=== PATIENT | female | born 1950 | race Hispanic/Latino ===

== ENCOUNTER 2020-07-14 10:32 | Outpatient (CLI) | payer OTHER | END 2020-07-14 19:12 | disposition home or self-care (01) | LOC: MAMMO 10:32 | PROVIDERS: ATTEND Obstetrics & Gynecology | DX: Z12.31 Encounter for screening mammogram for malignant neoplasm of breast (principal) ==

== ENCOUNTER 2020-08-07 10:34 | Outpatient (CLI) | payer OTHER | END 2020-08-07 20:27 | disposition home or self-care (01) | LOC: MAMMO 10:34 | PROVIDERS: ATTEND Obstetrics & Gynecology | DX: R92.2 Inconclusive mammogram (principal) ==

== ENCOUNTER 2021-01-13 14:55 | Outpatient (CLI) | payer OTHER | END 2021-01-13 19:40 | disposition home or self-care (01) | LOC: MAMMO 14:55 | PROVIDERS: ATTEND Obstetrics & Gynecology | DX: R92.8 Other abnormal and inconclusive findings on diagnostic imaging of breast (principal) | CPT/HCPCS: G0279 ==

== ENCOUNTER 2021-06-22 10:04 | Outpatient (CLI) | payer OTHER | END 2021-06-22 19:09 | disposition home or self-care (01) | LOC: US 10:04 | PROVIDERS: ATTEND Physician Assistant | DX: M79.661 Pain in right lower leg (principal) ==

== ENCOUNTER 2021-07-16 12:47 | Outpatient (CLI) | payer OTHER | END 2021-07-16 21:28 | disposition home or self-care (01) | LOC: MAMMO 12:47 | PROVIDERS: ATTEND Obstetrics & Gynecology | DX: Z12.31 Encounter for screening mammogram for malignant neoplasm of breast (principal); N64.59 Other signs and symptoms in breast | CPT/HCPCS: G0279 ==

== ENCOUNTER 2022-08-02 14:44 | Outpatient (CLI) | payer OTHER | END 2022-08-02 19:28 | LOC: MAMMO 14:44 | PROVIDERS: ATTEND Obstetrics & Gynecology | DX: Z12.31 Encounter for screening mammogram for malignant neoplasm of breast (principal) ==